=== PATIENT | male | born 1955 | race African-American/Black ===

== ENCOUNTER 2024-08-11 03:10 | Inpatient (IN) | payer MEDICARE, MEDICAID ==
[~2024-08-11] VITALS: Ht 172.7 cm; Wt 70.1 kg
[2024-08-11 03:50] LABS: BASOPHILS % 1.2 % (0.0-2.0); EOSINOPHILS % 3.6 % (0.0-5.0); HEMOGLOBIN. 13.9 g/dL (14.0-18.0); LYMPHOCYTES % 32.5 % (20.0-50.0); MEAN CORPUSCULAR HEMOGLOBIN 32.2 pg (28.0-32.0); MEAN CORPUSCULAR HGB CONC 33.9 g/dL (31.0-37.0); MEAN CORPUSCULAR VOLUME 95.1 fL (80.0-94.0); MEAN PLATELET VOLUME 8.9 fl (7.4-10.4); MONOCYTES % 9.9 % (2.0-8.0); NEUTROPHILS % 52.8 % (40.0-76.0); PLATELET 217 x1000/uL (130-400); RED BLOOD CELL COUNT 4.31 mill/uL (4.7-6.1); WHITE BLOOD COUNT 6.3 x1000/uL (4.5-11.0)
[2024-08-11 04:04] LABS: PARTIAL THROMBOPLASTIN TIME 25.5 sec (23.4-31.0)
[2024-08-11 04:37] LABS: CHLORIDE 109 mEq/L (98-107); POTASSIUM 3.9 mEq/L (3.5-5.1); SODIUM 142 mEq/L (136-145)
[2024-08-11 04:38] LABS: CARBON DIOXIDE 26 mEq/L (21-32)
[2024-08-11 04:39] LABS: CALCIUM 9.1 mg/dL (8.7-10.4)
[2024-08-11 04:43] LABS: CREATININE 1.9 mg/dL (0.6-1.3); GLUCOSE 91 mg/dL (70-105); UREA NITROGEN BLOOD 33 mg/dL (9-23)
[2024-08-11 04:52] LABS: ETHANOL BLOOD < 10 mg/dL (<10); TROPONIN I HIGH SENSITIVITY 79 ng/L (3.0-53)
[2024-08-11] MEDS: MORPHINE SULFATE 2 MG/ML INJ (NOT FOR IM USE) IV NR (05:39)
[2024-08-11] MEDS ORDERED: ONDANSETRON HCL 4MG/2ML INJ IV PRN (05:45)
[2024-08-11] MEDS ORDERED: HEPARIN 25,000 UNITS PREMIX 250 ML IV SCH (05:45)
[2024-08-11] MEDS ORDERED: ACETAMINOPHEN 325MG TABLET PO PRN (05:45)
[2024-08-11] MEDS ORDERED: IPRATROPIUM/ALBUTEROL 0.5-3(2.5)MG/3ML NEB HHN PRN (05:45)
[2024-08-11] MEDS ORDERED: HEPARIN 60 UNITS/KG BOLUS IV NR (05:45)
[2024-08-11] MEDS ORDERED: DEXTROSE 50% WATER 50ML SYRINGE IV PRN (05:45)
[2024-08-11] MEDS ORDERED: GUAIFENESIN 200MG/10ML SUGAR FREE UDC PO PRN (05:45)
[2024-08-11] MEDS ORDERED: HYDRALAZINE 20MG/ML VIAL IV PRN (05:45)
[2024-08-11 06:26] LABS: BASOPHILS % 0.5 % (0.0-2.0); HEMATOCRIT. 38.8 % (42.0-52.0); LYMPHOCYTES % 29.2 % (20.0-50.0); MEAN CORPUSCULAR HGB CONC 33.5 g/dL (31.0-37.0); MEAN CORPUSCULAR VOLUME 95.6 fL (80.0-94.0); MEAN PLATELET VOLUME 8.8 fl (7.4-10.4); MONOCYTES % 10.2 % (2.0-8.0); NEUTROPHILS % 57.1 % (40.0-76.0); PLATELET 210 x1000/uL (130-400); RED BLOOD CELL COUNT 4.06 mill/uL (4.7-6.1); RED CELL DISTRIBUTION WIDTH 13.1 % (11.6-14.6); WHITE BLOOD COUNT 6.9 x1000/uL (4.5-11.0)
[2024-08-11 06:36] LABS: CARBON DIOXIDE 21 mEq/L (21-32); CHLORIDE 120 mEq/L (98-107); POTASSIUM 3.1 mEq/L (3.5-5.1); SODIUM 146 mEq/L (136-145)
[2024-08-11 06:37] LABS: CALCIUM 6.2 mg/dL (8.7-10.4)
[2024-08-11 06:41] LABS: CREATININE 1.2 mg/dL (0.6-1.3); GLUCOSE 82 mg/dL (70-105)
[2024-08-11 06:42] LABS: LDL CHOLESTEROL 34 mg/dL (5-100); TRIGLYCERIDE 37 mg/dL (0-150); UREA NITROGEN BLOOD 25 mg/dL (9-23)
[2024-08-11 06:43] LABS: CHOLESTEROL 70 mg/dL (<200); CREATINE KINASE MB FRACTION 3.4 ng/mL (0.5-3.6)
[2024-08-11 06:44] LABS: HDL CHOLESTEROL 25 mg/dL (>55); PHOSPHORUS 1.8 mg/dL (2.5-4.9)
[2024-08-11 06:46] LABS: T4 FREE 0.75 ng/dL (0.89-1.76); THYROID STIMULATING HORMONE 0.46 uIU/mL (0.55-4.78)
[2024-08-11 08:03] LABS: *AMPHETAMINES SCREEN URINE NEGATIVE (NEGATIVE)
[2024-08-11 08:04] LABS: *BARBITURATES SCREEN URINE NEGATIVE (NEGATIVE); *BENZODIAZEPINES SCREEN URINE NEGATIVE (NEGATIVE); *COCAINE SCREEN URINE PRESUMPTIVE POSITIVE (NEGATIVE); CANNABINOID URINE SCREEN NEGATIVE (NEGATIVE); ECSTASY MDMA SCREEN URINE NEGATIVE (NEGATIVE); METHADONE URINE SCREEN NEGATIVE (NEGATIVE); OPIATES URINE SCREEN PRESUMPTIVE POSITIVE (NEGATIVE); PHENCYCLIDINE URINE SCREEN NEGATIVE (NEGATIVE)
[2024-08-11] MEDS: INSULIN LISPRO 100 UNITS/ML SUBCUT SCH (08:20)
[2024-08-11] MEDS: PANTOPRAZOLE 40MG DR TABLET PO SCH (08:36)
[2024-08-11 08:51] LABS: CLARITY URINE CLEAR (CLEAR); COLOR URINE YELLOW (YELLOW); GLUCOSE URINE NEGATIVE (NEGATIVE); KETONES URINE NEGATIVE (NEGATIVE); LEUKOCYTE ESTERASE URINE NEGATIVE (NEGATIVE); NITRITE URINE NEGATIVE (NEGATIVE); OCCULT BLOOD URINE NEGATIVE (NEGATIVE); PH URINE 6.5 (4.5-8.0); PROTEIN URINE TRACE (NEGATIVE); SPECIFIC GRAVITY URINE 1.017 (1.005-1.030)
[2024-08-11 09:05] LABS: BACTERIA URINE NONE SEEN; RBC URINE 0-2 /hpf (0-2); SQUAMOUS EPITHELIAL CELL URINE RARE /lpf (RARE/1+); WBC URINE 0-2 /hpf (0-2); YEAST URINE NONE SEEN
[2024-08-11] MEDS: BLOOD SUGAR DIAGNOSTIC STRIP TEST SCH (09:13)
[2024-08-11] MEDS: ASPIRIN 81MG TABLET PO SCH (09:17)
[2024-08-11] MEDS: ENOXAPARIN 80MG/0.8ML SYR SUBCUT SCH (09:18)
[2024-08-11] MEDS: POTASSIUM CHLORIDE 20MEQ TABLET SR PO NR (10:21)
[2024-08-11 10:59] LABS: TROPONIN I HIGH SENSITIVITY 275 ng/L (3.0-53)
[2024-08-11] MEDS ORDERED: HEPARIN BOLUS PRN aPTT <30 IV (12:00)
[2024-08-11] MEDS ORDERED: HEPARIN BOLUS PRN aPTT 30-44 IV (12:00)
[2024-08-11 15:45] LABS: TROPONIN I HIGH SENSITIVITY 331 ng/L (3.0-53)
[2024-08-11] MEDS: MAGNESIUM 2 G PREMIX 50 ML IV NR (16:29)
[2024-08-11] MEDS: POTASSIUM PHOSPHATE 30 MMOL in SODIUM CHLORIDE 0.9% 490 ML IV NR (16:58)
[2024-08-11 18:26] LABS: CREATINE KINASE MB FRACTION 4.1 ng/mL (0.5-3.6)
[2024-08-11] MEDS: ATORVASTATIN CALCIUM 40MG TABLET PO SCH (21:32)
[2024-08-12] VITALS: BP 116/67; PULSE 82; RESP 19; TEMP 36.78072; TEMP 36.8072; O2SAT 98
[2024-08-12 04:00] VITALS: BP 109/58; PULSE 78; RESP 19; TEMP 36.72516; O2SAT 98
[2024-08-12 08:00] VITALS: BP 122/77; PULSE 83; RESP 20; TEMP 35.94732; O2SAT 98
[2024-08-12] MEDS: LEVOTHYROXINE SODIUM 25MCG TABLET PO NR (10:02)
[2024-08-12 10:14] LABS: HEMATOCRIT 42.5 % (42.0-52.0); HEMOGLOBIN 13.9 g/dL (14.0-18.0); MEAN CORPUSCULAR HEMOGLOBIN 31.1 pg (28.0-32.0); MEAN CORPUSCULAR HGB CONC 32.8 g/dL (31.0-37.0); MEAN CORPUSCULAR VOLUME 95.1 fL (80.0-94.0); PLATELET 219 x1000/uL (130-400); RED BLOOD CELL COUNT 4.47 mill/uL (4.7-6.1); RED CELL DISTRIBUTION WIDTH 13.3 % (11.6-14.6); WHITE BLOOD COUNT 7.1 x1000/uL (4.5-11.0)
[2024-08-12 10:28] LABS: CARBON DIOXIDE 23 mEq/L (21-32); CHLORIDE 110 mEq/L (98-107); SODIUM 139 mEq/L (136-145)
[2024-08-12 10:29] LABS: CALCIUM 9.1 mg/dL (8.7-10.4)
[2024-08-12 10:34] LABS: CREATININE 1.5 mg/dL (0.6-1.3); GLUCOSE 121 mg/dL (70-105); UREA NITROGEN BLOOD 22 mg/dL (9-23)
[2024-08-12] MEDS: DILTIAZEM HCL 5MG/ML 5ML VIAL IV SCH (10:54)
[2024-08-12 10:58] LABS: POTASSIUM 5.4 mEq/L (3.5-5.1)
[2024-08-12] MEDS: NITROGLYCERIN SPRAY/4.9GM CAN TL NR (11:10)
[2024-08-12 12:00] VITALS: BP 142/79; PULSE 80; RESP 20; TEMP 36.00288; O2SAT 97
[2024-08-12 16:00] VITALS: BP 120/71; PULSE 80; RESP 20; TEMP 36.05844; O2SAT 97
[2024-08-12] MEDS: SODIUM CHLORIDE 0.9% 500 ML IV ONE (16:37)
[2024-08-12] MEDS: NITROGLYCERIN 0.4MG TABLET SL SL PRN (18:12)
[2024-08-12 20:00] VITALS: BP 145/80; PULSE 88; RESP 20; TEMP 36.28068; O2SAT 97
[2024-08-13] VITALS: BP 137/83; PULSE 86; RESP 21; TEMP 36.28068; O2SAT 97
[2024-08-13 04:00] VITALS: BP 125/85; PULSE 83; RESP 19; TEMP 36.05844; O2SAT 98
[2024-08-13 06:17] LABS: CHLORIDE 106 mEq/L (98-107); POTASSIUM 5.2 mEq/L (3.5-5.1); SODIUM 136 mEq/L (136-145)
[2024-08-13 06:18] LABS: CALCIUM 9.4 mg/dL (8.7-10.4); CARBON DIOXIDE 25 mEq/L (21-32)
[2024-08-13 06:23] LABS: CREATININE 1.4 mg/dL (0.6-1.3); GLUCOSE 96 mg/dL (70-105)
[2024-08-13 06:24] LABS: UREA NITROGEN BLOOD 19 mg/dL (9-23)
[2024-08-13 06:26] LABS: PHOSPHORUS 2.9 mg/dL (2.5-4.9)
[2024-08-13 06:39] LABS: HEMATOCRIT 42.1 % (42.0-52.0); HEMOGLOBIN 13.8 g/dL (14.0-18.0); MEAN CORPUSCULAR HEMOGLOBIN 31.2 pg (28.0-32.0); MEAN CORPUSCULAR HGB CONC 32.9 g/dL (31.0-37.0); MEAN CORPUSCULAR VOLUME 94.7 fL (80.0-94.0); PLATELET 222 x1000/uL (130-400); RED BLOOD CELL COUNT 4.44 mill/uL (4.7-6.1); WHITE BLOOD COUNT 7.1 x1000/uL (4.5-11.0)
[2024-08-13] MEDS: LEVOTHYROXINE SODIUM 25MCG TABLET PO SCH (06:45)
[2024-08-13 08:00] VITALS: BP 121/78; PULSE 85; RESP 18; TEMP 36.22512; O2SAT 97
[2024-08-13 09:20] LABS: HEMATOCRIT 44.8 % (42.0-52.0); MEAN CORPUSCULAR HEMOGLOBIN 31.7 pg (28.0-32.0); MEAN CORPUSCULAR HGB CONC 33.4 g/dL (31.0-37.0); MEAN CORPUSCULAR VOLUME 94.9 fL (80.0-94.0); PLATELET 246 x1000/uL (130-400); RED BLOOD CELL COUNT 4.72 mill/uL (4.7-6.1); RED CELL DISTRIBUTION WIDTH 13.2 % (11.6-14.6); WHITE BLOOD COUNT 7.3 x1000/uL (4.5-11.0)
[2024-08-13 12:00] VITALS: BP 119/71; PULSE 86; RESP 18; TEMP 36.3918; O2SAT 97
[2024-08-13 16:00] VITALS: BP 131/83; PULSE 89; RESP 19; TEMP 36.3918; O2SAT 97
[2024-08-13] MEDS: SODIUM CHLORIDE 0.9% 1,000 ML IV SCH (16:51)
[2024-08-13 19:08] LABS: TROPONIN I HIGH SENSITIVITY 106 ng/L (3.0-53)
[2024-08-13 20:00] VITALS: BP 112/88; PULSE 96; RESP 18; TEMP 36.33624; O2SAT 98
[2024-08-14 01:45] VITALS: BP 104/63; PULSE 77; RESP 18; TEMP 36.61404; O2SAT 95
[2024-08-14 04:48] VITALS: BP 130/76; PULSE 90; RESP 17; TEMP 36.72516; O2SAT 96
[2024-08-14 07:54] LABS: HEMOGLOBIN 14.2 g/dL (14.0-18.0); MEAN CORPUSCULAR HEMOGLOBIN 31.8 pg (28.0-32.0); MEAN CORPUSCULAR HGB CONC 33.8 g/dL (31.0-37.0); MEAN CORPUSCULAR VOLUME 94.3 fL (80.0-94.0); PLATELET 228 x1000/uL (130-400); RED BLOOD CELL COUNT 4.45 mill/uL (4.7-6.1); RED CELL DISTRIBUTION WIDTH 13.1 % (11.6-14.6); WHITE BLOOD COUNT 6.5 x1000/uL (4.5-11.0)
[2024-08-14 08:00] VITALS: BP 130/84; PULSE 87; RESP 18; TEMP 36.28068; O2SAT 100
[2024-08-14 08:25] LABS: CHLORIDE 105 mEq/L (98-107); POTASSIUM 5.2 mEq/L (3.5-5.1); SODIUM 134 mEq/L (136-145)
[2024-08-14 08:26] LABS: CALCIUM 8.6 mg/dL (8.7-10.4); CARBON DIOXIDE 25 mEq/L (21-32)
[2024-08-14] MEDS: NITROGLYCERIN 0.4MG TABLET SL SL PRN (08:26)
[2024-08-14 08:31] LABS: CREATININE 1.4 mg/dL (0.6-1.3); GLUCOSE 93 mg/dL (70-105); UREA NITROGEN BLOOD 21 mg/dL (9-23)
[2024-08-14 08:33] LABS: PHOSPHORUS 2.8 mg/dL (2.5-4.9)
[2024-08-14] MEDS: LACTATED RINGERS 1,000 ML IV ONE (09:31)
[2024-08-14 10:12] LABS: HEMATOCRIT 43.8 % (42.0-52.0); HEMOGLOBIN 14.3 g/dL (14.0-18.0); MEAN CORPUSCULAR HEMOGLOBIN 30.8 pg (28.0-32.0); MEAN CORPUSCULAR HGB CONC 32.6 g/dL (31.0-37.0); MEAN CORPUSCULAR VOLUME 94.4 fL (80.0-94.0); PLATELET 223 x1000/uL (130-400); RED BLOOD CELL COUNT 4.64 mill/uL (4.7-6.1); RED CELL DISTRIBUTION WIDTH 13.2 % (11.6-14.6); WHITE BLOOD COUNT 6.8 x1000/uL (4.5-11.0)
[2024-08-14] MEDS ORDERED: LIDOCAINE HCL 1% 10 MG/ML 10ML VIAL ONE (10:24)
[2024-08-14] MEDS ORDERED: FENTANYL CITRATE/PF 50MCG/ML 2ML VIAL ONE (10:25)
[2024-08-14] MEDS ORDERED: DIPHENHYDRAMINE 50MG/ML VIAL ONE (10:25)
[2024-08-14] MEDS ORDERED: MIDAZOLAM HCL 2 MG/2 ML VIAL ONE (10:25)
[2024-08-14] MEDS ORDERED: VERAPAMIL HCL 2.5 MG/1 ML 2ML VIAL IV ONE (10:25)
[2024-08-14] MEDS ORDERED: HEPARIN 1000 UNITS/ML 10ML ONE (10:25)
[2024-08-14] MEDS ORDERED: IODIXANOL 320MG/ML 100 ML BOTTLE IV ONE (10:25)
[2024-08-14] MEDS ORDERED: ACETAMINOPHEN 325MG TABLET PO PRN (12:00)
[2024-08-14] MEDS ORDERED: ATROPINE SULFATE 1MG/10ML SYR IV PRN (12:00)
[2024-08-14] MEDS: FUROSEMIDE 40MG/4ML VIAL IVP NR ×2 (15:40→21:20)
[2024-08-14 17:17] LABS: CLARITY URINE CLEAR (CLEAR); COLOR URINE YELLOW (YELLOW); GLUCOSE URINE NEGATIVE (NEGATIVE); KETONES URINE NEGATIVE (NEGATIVE); LEUKOCYTE ESTERASE URINE NEGATIVE (NEGATIVE); NITRITE URINE NEGATIVE (NEGATIVE); OCCULT BLOOD URINE NEGATIVE (NEGATIVE); PROTEIN URINE NEGATIVE (NEGATIVE); SPECIFIC GRAVITY URINE 1.011 (1.005-1.030); UROBILINOGEN URINE 0.2 E.U./dL (0.2-1.0)
[2024-08-14 17:51] VITALS: BP 115/83; PULSE 90; RESP 18; TEMP 36.6696; O2SAT 98
[2024-08-14] MEDS: LOSARTAN 25 MG TABLET PO SCH (18:00)
[2024-08-14 20:00] VITALS: BP 116/45; PULSE 67; RESP 19; TEMP 36.9474; O2SAT 98
[2024-08-14] MEDS: CHLORHEXIDINE GLUCONATE 4% EXTERNAL USE TOP SCH (21:00)
[2024-08-14] MEDS ORDERED: BISACODYL 10MG SUPP PR PRN (21:00)
[2024-08-14] MEDS ORDERED: DIPHENHYDRAMINE 25MG CAPSULE PO PRN (21:00)
[2024-08-14] MEDS: ALLOPURINOL 300 MG TABLET PO SCH (21:07)
[2024-08-14] MEDS: DOCUSATE SODIUM 100MG CAPSULE PO SCH (21:11)
[2024-08-14] MEDS: ASCORBIC ACID 500 MG TABLET PO SCH (21:11)
[2024-08-15] VITALS (63 sets, daily range): BP systolic 82–152; BP diastolic 39–122; PULSE 75–139; RESP 0–36; TEMP 35.16948–37.39188; O2SAT 92–100
[2024-08-15] MEDS ORDERED: INSULIN REGULAR 100 U/100 ML PREMIX IV NR (05:00)
[2024-08-15] MEDS: CEFAZOLIN 2GM/100ML 100 ML IV ONE (05:00)
[2024-08-15] MEDS ORDERED: AMINOCAPROIC ACID 5,000 MG in SODIUM CHLORIDE 0.9% 250 ML IV NR (05:00)
[2024-08-15] MEDS: BLOOD SUGAR DIAGNOSTIC STRIP TEST NR (05:00)
[2024-08-15] MEDS ORDERED: NICARDIPINE 40MG/200ML PREMIX 200 ML IV NR (05:00)
[2024-08-15] MEDS ORDERED: DOBUTAMINE 250 MG/250 ML PREMIX IV NR (05:00)
[2024-08-15] MEDS ORDERED: EPINEPHRINE 5 MG in DEXT 5% WATER 250 ML IV NR (05:00)
[2024-08-15] MEDS ORDERED: CEFAZOLIN 2GM/100ML 100 ML IV NR (05:00)
[2024-08-15] MEDS ORDERED: PAPAVERINE HCL 180MG in SODIUM CHLORIDE 0.9% 24ML IV NR (05:00)
[2024-08-15] MEDS ORDERED: THROMBIN (BOVINE) 5000 UNITS/VIAL TOP ONE (05:30)
[2024-08-15] MEDS ORDERED: DOPAMINE 400MG/250ML PREMIX 250 ML IV ONE (05:30)
[2024-08-15] MEDS ORDERED: VANCOMYCIN 1000MG/250ML IV NR (05:30)
[2024-08-15] MEDS ORDERED: POLYMYXIN B SULFATE 500000 UNITS/VIAL ONE (05:30)
[2024-08-15] MEDS ORDERED: HEPARIN 1000 UNITS/ML 10ML ONE ×3 (05:38→14:03)
[2024-08-15 06:45] LABS: POTASSIUM 4.6 mEq/L (3.5-5.1)
[2024-08-15 06:46] LABS: BASOPHILS % 0.7 % (0.0-2.0); EOSINOPHILS % 2.2 % (0.0-5.0); HEMATOCRIT. 43.7 % (42.0-52.0); HEMOGLOBIN. 14.4 g/dL (14.0-18.0); LYMPHOCYTES % 28.3 % (20.0-50.0); MEAN CORPUSCULAR HEMOGLOBIN 31.1 pg (28.0-32.0); MEAN CORPUSCULAR HGB CONC 32.9 g/dL (31.0-37.0); MEAN CORPUSCULAR VOLUME 94.4 fL (80.0-94.0); MEAN PLATELET VOLUME 8.9 fl (7.4-10.4); MONOCYTES % 11.5 % (2.0-8.0); NEUTROPHILS % 57.3 % (40.0-76.0); PLATELET 244 x1000/uL (130-400); RED BLOOD CELL COUNT 4.63 mill/uL (4.7-6.1); WHITE BLOOD COUNT 8.5 x1000/uL (4.5-11.0)
[2024-08-15 06:53] LABS: PHOSPHORUS 4.4 mg/dL (2.5-4.9)
[2024-08-15] MEDS ORDERED: SEVOFLURANE 250 ML LIQUID INH ONE (07:01)
[2024-08-15] MEDS ORDERED: NITROGLYCERIN 50MG PREMIX 250 ML IV ONE (07:08)
[2024-08-15] MEDS ORDERED: FENTANYL CITRATE/PF 50MCG/ML 2ML VIAL ONE (07:13)
[2024-08-15] MEDS ORDERED: LIDOCAINE HCL 2% 5ML SYRINGE IV ONE (07:14)
[2024-08-15] MEDS ORDERED: LIDOCAINE HCL 1% 10 MG/ML 10ML VIAL ONE (07:14)
[2024-08-15] MEDS ORDERED: PROPOFOL 200MG/20ML VIAL IV ONE (07:15)
[2024-08-15] MEDS ORDERED: ROCURONIUM BROMIDE 10MG/ML VIAL 5ML IV ONE ×3 (07:15→09:36)
[2024-08-15] MEDS ORDERED: EPINEPHRINE 0.1MG/ML (1:10,000) 10ML SYR ONE (07:16)
[2024-08-15] MEDS ORDERED: PHENYLEPHRINE HCL 10MG/ML 1ML IV ONE (07:18)
[2024-08-15] MEDS ORDERED: CALCIUM CHLORIDE 1GM/10ML SYR IV ONE ×2 (07:21→09:49)
[2024-08-15] MEDS ORDERED: FUROSEMIDE 20MG/2ML VIAL ONE (08:09)
[2024-08-15] MEDS ORDERED: METOCLOPRAMIDE HCL 10MG/2ML VIAL ONE (08:34)
[2024-08-15] MEDS ORDERED: ACETAMINOPHEN 1000MG/100ML 100 ML IV NR (08:45)
[2024-08-15] MEDS ORDERED: CHLORHEXIDINE GLUCONATE 4% EXTERNAL USE TOP SCH (09:00)
[2024-08-15] MEDS ORDERED: DEXTROSE 50% WATER 50ML SYRINGE IV PRN ×2 (10:00)
[2024-08-15] MEDS ORDERED: KCL 10MEQ/50ML PREMIX 200 ML IV PRN (10:00)
[2024-08-15] MEDS ORDERED: MAGNESIUM SULFATE 3 GM in DEXT 5% WATER 100 ML IV PRN ×2 (10:00→10:45)
[2024-08-15] MEDS ORDERED: MAGNESIUM 2 G PREMIX 50 ML IV PRN (10:00)
[2024-08-15] MEDS ORDERED: MAGNESIUM 1 G PREMIX 100 ML IV PRN (10:00)
[2024-08-15] MEDS ORDERED: PROTAMINE SULFATE 10MG/ML VIAL 25ML IV ONE (10:01)
[2024-08-15] MEDS ORDERED: DEXMEDETOMIDINE 400 MCG/100 ML 100 ML IV ONE (10:12)
[2024-08-15] MEDS ORDERED: SUGAMMADEX SODIUM 200MG/2ML VIAL IV ONE (10:13)
[2024-08-15] MEDS ORDERED: ONDANSETRON HCL 4MG/2ML INJ ONE (10:24)
[2024-08-15] MEDS ORDERED: SODIUM BICARBONATE 8.4% 50MEQ/50ML SYR IV ONE ×3 (10:34)
[2024-08-15] MEDS ORDERED: KCL 20MEQ/100ML PREMIX 100 ML IV ONE ×2 (10:37→10:38)
[2024-08-15] MEDS ORDERED: CALCIUM CHLORIDE 5,000 MG in DEXT 5% WATER 500 ML IV PRN ×2 (10:45→12:00)
[2024-08-15] MEDS ORDERED: CALCIUM CHLORIDE 3,000 MG in DEXT 5% WATER 250 ML IV PRN (10:45)
[2024-08-15] MEDS ORDERED: ALBUMIN HUMAN 25GM/100ML (25%) IV PRN (10:45)
[2024-08-15] MEDS ORDERED: ACETAMINOPHEN 325MG TABLET PO PRN (10:45)
[2024-08-15] MEDS ORDERED: ALBUMIN HUMAN 12.5G/250ML (5%) IV PRN (10:45)
[2024-08-15] MEDS ORDERED: ONDANSETRON HCL 4MG/2ML INJ IV PRN (10:45)
[2024-08-15] MEDS ORDERED: SODIUM CHLORIDE 0.9% 500 ML IV PRN (10:45)
[2024-08-15] MEDS ORDERED: ALBUMIN HUMAN 12.5G/250ML (5%) IV ONE (10:48)
[2024-08-15 11:39] LABS: BG BASE EXCESS -8.9 mmol/L (-2.0-3.0); BG CARBOXYHEMOGLOBIN 0.5 % (0.5-1.5); BG DEOXYHEMOGLOBIN 9.1 % (0.0-5.0); BG FRACTION INSPIRED OXYGEN 60; BG METHEMOGLOBIN 0.3 % (0.5-1.5); BG OXYGEN SATURATION 90.8 % (94.0-98.0); BG OXYHEMOGLOBIN 90.1 % (94.0-98.0); BG PCO2 42.5 mmHg (35.0-48.0); BG PH 7.245 (7.350-7.450); BG PO2 71.5 mmHg (83.0-108.0); BG SAMPLE SITE ALINE; BG TOTAL HEMOGLOBIN 12.6 g/dL (13.5-17.5); BG VENT MODE MASK - SIMPLE
[2024-08-15] MEDS: DEXT 5%/0.45% NACL 1000ML 1,000 ML IV SCH (11:49)
[2024-08-15] MEDS: SODIUM BICARBONATE 8.4% 50MEQ/50ML SYR IV NR ×3 (11:49→14:05)
[2024-08-15] MEDS: AMIODARONE 150MG/100ML 100 ML IV NR (11:50)
[2024-08-15 11:55] LABS: MEAN CORPUSCULAR HEMOGLOBIN 30.6 pg (28.0-32.0); MEAN CORPUSCULAR HGB CONC 32.1 g/dL (31.0-37.0); MEAN CORPUSCULAR VOLUME 95.5 fL (80.0-94.0); PLATELET 238 x1000/uL (130-400); RED BLOOD CELL COUNT 3.82 mill/uL (4.7-6.1); RED CELL DISTRIBUTION WIDTH 13.1 % (11.6-14.6)
[2024-08-15 11:59] LABS: CHLORIDE 105 mEq/L (98-107); POTASSIUM 3.6 mEq/L (3.5-5.1); SODIUM 138 mEq/L (136-145)
[2024-08-15 12:00] LABS: CARBON DIOXIDE 20 mEq/L (21-32); HEMATOCRIT 36.5 % (42.0-52.0); HEMOGLOBIN 11.7 g/dL (14.0-18.0); WHITE BLOOD COUNT 23.8 x1000/uL (4.5-11.0)
[2024-08-15] MEDS: BLOOD SUGAR DIAGNOSTIC STRIP TEST SCH (12:00)
[2024-08-15] MEDS ORDERED: DEXT 5%/0.45% NACL 1000ML 1,000 ML IV SCH (12:00)
[2024-08-15 12:05] LABS: CREATININE 2.2 mg/dL (0.6-1.3); UREA NITROGEN BLOOD 37 mg/dL (9-23)
[2024-08-15 12:07] LABS: PHOSPHORUS 3.8 mg/dL (2.5-4.9)
[2024-08-15 12:08] LABS: PROTHROMBIN TIME 11.5 sec (9.6-11.0)
[2024-08-15] MEDS: AMIODARONE HCL 900 MG in DEXT 5% WATER 482 ML IV PRN (12:08)
[2024-08-15] MEDS ORDERED: NALOXONE HCL 0.4MG/ML VIAL IV PRN (12:15)
[2024-08-15] MEDS: DOPAMINE 400MG/250ML PREMIX 250 ML IV PRN (12:19)
[2024-08-15] MEDS: NOREPINEPHRINE 8MG/250ML PMX 250 ML IV NR (12:21)
[2024-08-15] MEDS: INSULIN REGULAR 100U/100ML PMX 100 ML IV SCH (12:21)
[2024-08-15 12:23] LABS: BG BASE EXCESS -3.5 mmol/L (-2.0-3.0); BG CARBOXYHEMOGLOBIN 0.7 % (0.5-1.5); BG DEOXYHEMOGLOBIN 10.3 % (0.0-5.0); BG FRACTION INSPIRED OXYGEN 60; BG HCO3 ACT 23.1 mmol/L (21.0-28.0); BG METHEMOGLOBIN 0.3 % (0.5-1.5); BG OXYGEN SATURATION 89.6 % (94.0-98.0); BG OXYHEMOGLOBIN 88.7 % (94.0-98.0); BG PCO2 48.3 mmHg (35.0-48.0); BG PH 7.298 (7.350-7.450); BG PO2 65.3 mmHg (83.0-108.0); BG SAMPLE SITE ALINE; BG VENT MODE MASK - SIMPLE
[2024-08-15] MEDS: IPRATROPIUM/ALBUTEROL 0.5-3(2.5)MG/3ML NEB HHN SCH (12:28)
[2024-08-15] MEDS: KCL 10MEQ/50ML PREMIX 100 ML IV PRN (12:37)
[2024-08-15 12:41] LABS: GLUCOSE 322 mg/dL (70-105)
[2024-08-15] MEDS: ALBUMIN HUMAN 12.5G/250ML (5%) IV NR (12:50)
[2024-08-15] MEDS: BUMETANIDE 2.5MG/10ML VIAL IV NR (12:57)
[2024-08-15 13:35] LABS: BG BASE EXCESS -6.4 mmol/L (-2.0-3.0); BG CARBOXYHEMOGLOBIN 0.2 % (0.5-1.5); BG DEOXYHEMOGLOBIN 8.7 % (0.0-5.0); BG FRACTION INSPIRED OXYGEN 60; BG HCO3 ACT 19.6 mmol/L (21.0-28.0); BG METHEMOGLOBIN 0.3 % (0.5-1.5); BG OXYGEN SATURATION 91.3 % (94.0-98.0); BG OXYHEMOGLOBIN 90.8 % (94.0-98.0); BG PCO2 40.8 mmHg (35.0-48.0); BG PO2 69.4 mmHg (83.0-108.0); BG SAMPLE SITE ALINE; BG TOTAL HEMOGLOBIN 12.3 g/dL (13.5-17.5); BG VENT MODE MASK - SIMPLE
[2024-08-15] MEDS: CEFAZOLIN 1000MG PREMIX 50 ML IV SCH (13:49)
[2024-08-15] MEDS: OXYCODONE HCL/ACETAMINOPHEN 5/325MG TABLET PO PRN (13:49)
[2024-08-15] MEDS: EPINEPHRINE 5 MG in DEXT 5% WATER 245 ML IV PRN (14:05)
[2024-08-15] MEDS: MAGNESIUM 2 G PREMIX 50 ML IV NR (14:53)
[2024-08-15] MEDS: ACETAMINOPHEN WITH CODEINE 300/30MG TABLET PO PRN (15:09)
[2024-08-15] MEDS: FENTANYL CITRATE/PF 50MCG/ML 2ML VIAL IV NR (16:30)
[2024-08-15] MEDS ORDERED: NOREPINEPHRINE 8MG/250ML PMX 250 ML IV PRN (18:00)
[2024-08-15] MEDS: MORPHINE SULFATE 2 MG/ML INJ (NOT FOR IM USE) IV NR (18:30)
[2024-08-15 18:31] LABS: CHLORIDE 101 mEq/L (98-107); POTASSIUM 3.4 mEq/L (3.5-5.1); SODIUM 140 mEq/L (136-145)
[2024-08-15 18:32] LABS: CALCIUM 9.5 mg/dL (8.7-10.4); CARBON DIOXIDE 28 mEq/L (21-32); HEMATOCRIT. 34.2 % (42.0-52.0); HEMOGLOBIN. 11.5 g/dL (14.0-18.0); MEAN CORPUSCULAR HEMOGLOBIN 31.4 pg (28.0-32.0); MEAN CORPUSCULAR HGB CONC 33.6 g/dL (31.0-37.0); MEAN CORPUSCULAR VOLUME 93.4 fL (80.0-94.0); MEAN PLATELET VOLUME 9.3 fl (7.4-10.4); PLATELET 219 x1000/uL (130-400); RED BLOOD CELL COUNT 3.66 mill/uL (4.7-6.1); RED CELL DISTRIBUTION WIDTH 12.9 % (11.6-14.6)
[2024-08-15 18:35] LABS: DIFFERENTIAL COMMENT 1
[2024-08-15 18:37] LABS: CREATININE 2.3 mg/dL (0.6-1.3); GLUCOSE 259 mg/dL (70-105); UREA NITROGEN BLOOD 37 mg/dL (9-23)
[2024-08-15 18:39] LABS: PHOSPHORUS 1.2 mg/dL (2.5-4.9)
[2024-08-15] MEDS: MAGNESIUM 2 G PREMIX 50 ML IV PRN (18:43)
[2024-08-15] MEDS: KCL 10MEQ/50ML PREMIX 150 ML IV PRN (18:43)
[2024-08-15] MEDS: BACITRACIN 14GM TUBE TOP SCH (21:00)
[2024-08-15 21:12] LABS: PLATELET ESTIMATE NORMAL
[2024-08-15] MEDS: ACETAMINOPHEN 325MG TABLET PO PRN (23:15)
[2024-08-16] VITALS (101 sets, daily range): BP systolic 76–155; BP diastolic 45–130; PULSE 51–82; RESP 17–49; TEMP 36.22512–36.83628; O2SAT 82–100
[2024-08-16 01:26] LABS: HEMATOCRIT. 33.5 % (42.0-52.0); HEMOGLOBIN. 11.3 g/dL (14.0-18.0); MEAN CORPUSCULAR HEMOGLOBIN 31.7 pg (28.0-32.0); MEAN CORPUSCULAR HGB CONC 33.8 g/dL (31.0-37.0); MEAN CORPUSCULAR VOLUME 93.6 fL (80.0-94.0); PLATELET 210 x1000/uL (130-400); RED BLOOD CELL COUNT 3.58 mill/uL (4.7-6.1); RED CELL DISTRIBUTION WIDTH 12.9 % (11.6-14.6); WHITE BLOOD COUNT 19.2 x1000/uL (4.5-11.0)
[2024-08-16 01:31] LABS: CHLORIDE 100 mEq/L (98-107); POTASSIUM 4.7 mEq/L (3.5-5.1); SODIUM 136 mEq/L (136-145)
[2024-08-16 01:32] LABS: CALCIUM 8.9 mg/dL (8.7-10.4); CARBON DIOXIDE 30 mEq/L (21-32)
[2024-08-16 01:37] LABS: DIFFERENTIAL COMMENT 1; GLUCOSE 103 mg/dL (70-105); UREA NITROGEN BLOOD 34 mg/dL (9-23)
[2024-08-16 01:39] LABS: PHOSPHORUS 3.6 mg/dL (2.5-4.9)
[2024-08-16] MEDS: NITROGLYCERIN 0.4MG TABLET SL SL PRN (03:39)
[2024-08-16 05:14] LABS: PLATELET ESTIMATE NORMAL
[2024-08-16 05:19] LABS: HEMATOCRIT 32.4 % (42.0-52.0); HEMOGLOBIN 10.9 g/dL (14.0-18.0); MEAN CORPUSCULAR HEMOGLOBIN 31.2 pg (28.0-32.0); MEAN CORPUSCULAR HGB CONC 33.6 g/dL (31.0-37.0); MEAN CORPUSCULAR VOLUME 92.9 fL (80.0-94.0); PLATELET 202 x1000/uL (130-400); RED BLOOD CELL COUNT 3.49 mill/uL (4.7-6.1); RED CELL DISTRIBUTION WIDTH 12.9 % (11.6-14.6); WHITE BLOOD COUNT 20.6 x1000/uL (4.5-11.0)
[2024-08-16 05:20] LABS: BG BASE EXCESS 1.5 mmol/L (-2.0-3.0); BG CARBOXYHEMOGLOBIN 0.4 % (0.5-1.5); BG DEOXYHEMOGLOBIN 7.7 % (0.0-5.0); BG FRACTION INSPIRED OXYGEN 40; BG HCO3 ACT 26.8 mmol/L (21.0-28.0); BG METHEMOGLOBIN 0.3 % (0.5-1.5); BG OXYGEN SATURATION 92.2 % (94.0-98.0); BG OXYHEMOGLOBIN 91.6 % (94.0-98.0); BG PCO2 44.9 mmHg (35.0-48.0); BG PH 7.393 (7.350-7.450); BG PO2 65.3 mmHg (83.0-108.0); BG SAMPLE SITE ALINE; BG VENT MODE NASAL CANNULA
[2024-08-16 05:24] LABS: POTASSIUM 5.2 mEq/L (3.5-5.1)
[2024-08-16 05:27] LABS: CALCIUM 8.6 mg/dL (8.7-10.4)
[2024-08-16 05:31] LABS: CREATININE 1.9 mg/dL (0.6-1.3)
[2024-08-16 05:34] LABS: PHOSPHORUS 4.3 mg/dL (2.5-4.9)
[2024-08-16] MEDS ORDERED: CALCIUM GLUCONATE 1,000 MG in DEXT 5% WATER 90 ML IV ONE (07:45)
[2024-08-16] MEDS: FUROSEMIDE 40MG/4ML VIAL IVP SCH (08:08)
[2024-08-16] MEDS: FAMOTIDINE 20MG/2ML VIAL IV SCH (09:27)
[2024-08-16] MEDS: TAMSULOSIN HCL 0.4MG SR CAPSULE PO SCH (09:28)
[2024-08-16] MEDS: MIDODRINE HCL 5MG TABLET PO SCH (09:28)
[2024-08-16] MEDS: CALCIUM CHLORIDE 3,000 MG in DEXT 5% WATER 250 ML IV PRN (10:06)
[2024-08-16 11:35] LABS: CARBON DIOXIDE 25 mEq/L (21-32); CHLORIDE 101 mEq/L (98-107); POTASSIUM 5.7 mEq/L (3.5-5.1); SODIUM 134 mEq/L (136-145)
[2024-08-16 11:36] LABS: CALCIUM 8.6 mg/dL (8.7-10.4)
[2024-08-16 11:40] LABS: CREATININE 2.1 mg/dL (0.6-1.3); GLUCOSE 88 mg/dL (70-105)
[2024-08-16 11:41] LABS: UREA NITROGEN BLOOD 26 mg/dL (9-23)
[2024-08-16 11:43] LABS: PHOSPHORUS 4.8 mg/dL (2.5-4.9)
[2024-08-16 13:14] LABS: HEMATOCRIT. 36.8 % (42.0-52.0); HEMOGLOBIN. 11.7 g/dL (14.0-18.0); MEAN CORPUSCULAR HEMOGLOBIN 31.3 pg (28.0-32.0); MEAN CORPUSCULAR HGB CONC 31.7 g/dL (31.0-37.0); MEAN CORPUSCULAR VOLUME 98.8 fL (80.0-94.0); MEAN PLATELET VOLUME 9.5 fl (7.4-10.4); PLATELET 174 x1000/uL (130-400); RED BLOOD CELL COUNT 3.73 mill/uL (4.7-6.1); RED CELL DISTRIBUTION WIDTH 13.4 % (11.6-14.6)
[2024-08-16] MEDS ORDERED: SODIUM POLYSTYRENE SULFONATE 15 G/60 ML BOT PO ONE (13:45)
[2024-08-16 13:48] LABS: DIFFERENTIAL COMMENT 1
[2024-08-16] MEDS: SODIUM ZIRCONIUM CYCLOSILICATE 10GM/PACKET PO NR (14:00)
[2024-08-16] MEDS: DEXTROSE 50% WATER 50ML SYRINGE IV NR (14:00)
[2024-08-16] MEDS: INSULIN REGULAR (HUMULIN R) 1000UNITS/10ML VIAL IV NR (14:01)
[2024-08-16 16:10] LABS: PLATELET ESTIMATE NORMAL
[2024-08-16] MEDS: BLOOD SUGAR DIAGNOSTIC STRIP TEST SCH (20:00)
[2024-08-16] MEDS: MAGNESIUM/ALUMINUM HYDROXIDE/SIMETHICONE 30ML UDC PO PRN (20:51)
[2024-08-16 23:16] LABS: CHLORIDE 96 mEq/L (98-107); POTASSIUM 5.3 mEq/L (3.5-5.1); SODIUM 130 mEq/L (136-145)
[2024-08-16 23:17] LABS: CARBON DIOXIDE 29 mEq/L (21-32)
[2024-08-16 23:18] LABS: CALCIUM 9.9 mg/dL (8.7-10.4)
[2024-08-16 23:22] LABS: CREATININE 2.1 mg/dL (0.6-1.3); GLUCOSE 116 mg/dL (70-105)
[2024-08-16 23:23] LABS: UREA NITROGEN BLOOD 33 mg/dL (9-23)
[2024-08-16 23:25] LABS: PHOSPHORUS 6.2 mg/dL (2.5-4.9)
[2024-08-17] VITALS (39 sets, daily range): BP systolic 82–142; BP diastolic 29–95; PULSE 68–108; RESP 16–33; TEMP 36.33624–37.05852; O2SAT 0–100
[2024-08-17] MEDS: MAGNESIUM 1 G PREMIX 100 ML IV PRN (03:16)
[2024-08-17] MEDS: FUROSEMIDE 40MG/4ML VIAL IVP NR ×2 (03:23→10:01)
[2024-08-17] MEDS ORDERED: DEXTROSE 50% WATER 50ML SYRINGE IV PRN (07:45)
[2024-08-17] MEDS: BLOOD SUGAR DIAGNOSTIC STRIP TEST SCH (07:50)
[2024-08-17 08:17] LABS: HEMATOCRIT. 29.8 % (42.0-52.0); HEMOGLOBIN. 9.9 g/dL (14.0-18.0); MEAN CORPUSCULAR HEMOGLOBIN 31.4 pg (28.0-32.0); MEAN CORPUSCULAR HGB CONC 33.4 g/dL (31.0-37.0); MEAN CORPUSCULAR VOLUME 94.1 fL (80.0-94.0); MEAN PLATELET VOLUME 9.1 fl (7.4-10.4); PLATELET 150 x1000/uL (130-400); RED BLOOD CELL COUNT 3.16 mill/uL (4.7-6.1); WHITE BLOOD COUNT 15.6 x1000/uL (4.5-11.0)
[2024-08-17 08:21] LABS: CHLORIDE 95 mEq/L (98-107); POTASSIUM 5.1 mEq/L (3.5-5.1); SODIUM 130 mEq/L (136-145)
[2024-08-17 08:22] LABS: CALCIUM 9.3 mg/dL (8.7-10.4); CARBON DIOXIDE 28 mEq/L (21-32)
[2024-08-17 08:27] LABS: CREATININE 1.9 mg/dL (0.6-1.3); GLUCOSE 149 mg/dL (70-105); UREA NITROGEN BLOOD 34 mg/dL (9-23)
[2024-08-17 08:28] LABS: DIFFERENTIAL COMMENT 1
[2024-08-17 08:29] LABS: PHOSPHORUS 5.2 mg/dL (2.5-4.9)
[2024-08-17] MEDS ORDERED: POTASSIUM CHLORIDE 10MEQ IN WATER 50ML PREMIX IV ONE (09:00)
[2024-08-17] MEDS: INSULIN LISPRO 100 UNITS/ML SUBCUT SCH (09:09)
[2024-08-17] MEDS: CLOPIDOGREL 75MG TABLET PO NR (10:00)
[2024-08-17] MEDS: CLOPIDOGREL 75MG TABLET PO SCH (10:01)
[2024-08-17] MEDS: MAGNESIUM 2 G PREMIX 50 ML IV NR (10:01)
[2024-08-17] MEDS ORDERED: HALOPERIDOL 0.5MG TABLET PO PRN (10:30)
[2024-08-17 10:54] LABS: PLATELET ESTIMATE NORMAL
[2024-08-17] MEDS ORDERED: HALOPERIDOL LACTATE 5MG/ML VIAL IM PRN (18:15)
[2024-08-17] MEDS: SODIUM CHLORIDE 0.9% 1,000 ML IV SCH (18:30)
[2024-08-17] MEDS: LORAZEPAM 2MG/ML INJ IV PRN (18:39)
[2024-08-18] VITALS (8 sets, daily range): BP systolic 97–118; BP diastolic 57–72; PULSE 94–108; RESP 14–24; TEMP 36.55848–36.83628; O2SAT 95–99
[2024-08-18 06:34] LABS: HEMATOCRIT. 32.5 % (42.0-52.0); HEMOGLOBIN. 10.4 g/dL (14.0-18.0); MEAN CORPUSCULAR HGB CONC 32.1 g/dL (31.0-37.0); MEAN CORPUSCULAR VOLUME 96.5 fL (80.0-94.0); PLATELET 157 x1000/uL (130-400); RED BLOOD CELL COUNT 3.37 mill/uL (4.7-6.1); RED CELL DISTRIBUTION WIDTH 13.2 % (11.6-14.6); WHITE BLOOD COUNT 13.4 x1000/uL (4.5-11.0)
[2024-08-18 06:46] LABS: CARBON DIOXIDE 28 mEq/L (21-32); CHLORIDE 99 mEq/L (98-107); POTASSIUM 4.6 mEq/L (3.5-5.1); SODIUM 133 mEq/L (136-145)
[2024-08-18 06:47] LABS: CALCIUM 8.5 mg/dL (8.7-10.4)
[2024-08-18 06:51] LABS: CREATININE 1.7 mg/dL (0.6-1.3)
[2024-08-18 06:52] LABS: GLUCOSE 97 mg/dL (70-105); UREA NITROGEN BLOOD 33 mg/dL (9-23)
[2024-08-18 06:54] LABS: PHOSPHORUS 4.5 mg/dL (2.5-4.9)
[2024-08-18 07:23] LABS: DIFFERENTIAL COMMENT 1
[2024-08-18] MEDS: IOHEXOL-350 100 ML BOTTLE ONE (07:42)
[2024-08-18] MEDS: FUROSEMIDE 40MG/4ML VIAL IVP NR (11:01)
[2024-08-18] MEDS: MAGNESIUM 2 G PREMIX 50 ML IV NR (11:02)
[2024-08-18 14:31] LABS: PLATELET ESTIMATE NORMAL
[2024-08-19] VITALS (11 sets, daily range): BP systolic 104–132; BP diastolic 70–89; PULSE 102–118; RESP 14–25; TEMP 36.44736–36.83628; O2SAT 92–100
[2024-08-19 06:57] LABS: CHLORIDE 102 mEq/L (98-107); SODIUM 137 mEq/L (136-145)
[2024-08-19 06:58] LABS: CALCIUM 8.4 mg/dL (8.7-10.4); CARBON DIOXIDE 30 mEq/L (21-32)
[2024-08-19 07:00] LABS: HEMATOCRIT 30.9 % (42.0-52.0); HEMOGLOBIN 10.4 g/dL (14.0-18.0); MEAN CORPUSCULAR HEMOGLOBIN 32.1 pg (28.0-32.0); MEAN CORPUSCULAR HGB CONC 33.8 g/dL (31.0-37.0); MEAN CORPUSCULAR VOLUME 95.1 fL (80.0-94.0); PLATELET 216 x1000/uL (130-400); RED BLOOD CELL COUNT 3.25 mill/uL (4.7-6.1); RED CELL DISTRIBUTION WIDTH 13.1 % (11.6-14.6); WHITE BLOOD COUNT 9.4 x1000/uL (4.5-11.0)
[2024-08-19 07:03] LABS: CREATININE 1.3 mg/dL (0.6-1.3); GLUCOSE 128 mg/dL (70-105); UREA NITROGEN BLOOD 30 mg/dL (9-23)
[2024-08-19] MEDS: FUROSEMIDE 40MG/4ML VIAL IVP NR (08:17)
[2024-08-19 14:07] LABS: BG BASE EXCESS 3.7 mmol/L (-2.0-3.0); BG CARBOXYHEMOGLOBIN 0.9 % (0.5-1.5); BG FRACTION INSPIRED OXYGEN 21; BG HCO3 ACT 27.3 mmol/L (21.0-28.0); BG METHEMOGLOBIN 0.3 % (0.5-1.5); BG OXYGEN SATURATION 89.9 % (94.0-98.0); BG OXYHEMOGLOBIN 88.8 % (94.0-98.0); BG PCO2 37.5 mmHg (35.0-48.0); BG PO2 56.2 mmHg (83.0-108.0); BG SAMPLE SITE LEFT BRACHIAL; BG VENT MODE ROOM AIR
[2024-08-20] VITALS (14 sets, daily range): BP systolic 97–125; BP diastolic 59–92; PULSE 114–125; RESP 18–25; TEMP 36.61404–36.6696; O2SAT 95–100
[2024-08-20] MEDS: DOCUSATE SODIUM 100MG CAPSULE PO PRN (06:17)
[2024-08-20] MEDS: TAMSULOSIN HCL 0.4MG SR CAPSULE PO SCH (08:13)
[2024-08-20] MEDS: FUROSEMIDE 40MG/4ML VIAL IVP SCH (08:13)
[2024-08-20] MEDS: MIDODRINE HCL 5MG TABLET PO SCH (09:00)
[2024-08-20] MEDS ORDERED: FURO10VI3 PO (15:57)
[2024-08-20] MEDS ORDERED: ASPI-1160 PO (15:57)
[2024-08-20] MEDS ORDERED: PEPJ2 PO (15:57)
[2024-08-20] MEDS ORDERED: CLOP-31 PO (15:57)
[2024-08-20] MEDS ORDERED: MIDO5TAB4 PO (15:57)
[2024-08-20] MEDS ORDERED: NITR0.4T49 SL (15:57)
[2024-08-20] MEDS ORDERED: LIP40 PO (15:57)
[2024-08-20] MEDS ORDERED: TAMS-11 PO (15:57)
== END 2024-08-20 17:49 | disposition home health service (06) | DRG 165 ==
LOC: ER 03:18 → 5WST 17:11 → 7EST 23:11 → 3WST 08-14 17:41 → CVICU 08-15 11:01 → 3WST 08-17 22:23
PROVIDERS: ADMIT Hospitalist; ATTEND Hospitalist
PROC: 4A023N7 Measurement of Cardiac Sampling and Pressure, Left Heart, Percutaneous Approach (ICD-10-PCS; 2024-08-14)
PROC: B2111ZZ Fluoroscopy of Multiple Coronary Arteries using Low Osmolar Contrast (ICD-10-PCS; 2024-08-14)
PROC: 02100Z9 Bypass Coronary Artery, One Artery from Left Internal Mammary, Open Approach (ICD-10-PCS; 2024-08-15)
PROC: 021109W Bypass Coronary Artery, Two Arteries from Aorta with Autologous Venous Tissue, Open Approach (ICD-10-PCS; 2024-08-15)
PROC: 5A1221Z Performance of Cardiac Output, Continuous (ICD-10-PCS; 2024-08-15)
PROC: 06BQ0ZZ Excision of Left Saphenous Vein, Open Approach (ICD-10-PCS; 2024-08-15)
PROC: 5A2204Z Restoration of Cardiac Rhythm, Single (ICD-10-PCS; principal; 2024-08-16)
DX: I21.4 Non-ST elevation (NSTEMI) myocardial infarction (principal); I50.23 Acute on chronic systolic (congestive) heart failure; N17.9 Acute kidney failure, unspecified; I42.9 Cardiomyopathy, unspecified; E11.22 Type 2 diabetes mellitus with diabetic chronic kidney disease; D64.9 Anemia, unspecified; E03.8 Other specified hypothyroidism; E11.40 Type 2 diabetes mellitus with diabetic neuropathy, unspecified; I25.10 Atherosclerotic heart disease of native coronary artery without angina pectoris; Z20.822 Contact with and (suspected) exposure to COVID-19; I13.0 Hypertensive heart and chronic kidney disease with heart failure and stage 1 through stage 4 chronic kidney disease, or unspecified chronic kidney disease; E83.42 Hypomagnesemia; E87.6 Hypokalemia; I44.7 Left bundle-branch block, unspecified; N18.9 Chronic kidney disease, unspecified; N39.0 Urinary tract infection, site not specified; I48.0 Paroxysmal atrial fibrillation; F14.10 Cocaine abuse, uncomplicated; E78.5 Hyperlipidemia, unspecified; F17.200 Nicotine dependence, unspecified, uncomplicated; Z79.4 Long term (current) use of insulin; Z79.82 Long term (current) use of aspirin; Z79.899 Other long term (current) drug therapy; Z82.49 Family history of ischemic heart disease and other diseases of the circulatory system; Z91.148 Patient's other noncompliance with medication regimen for other reason
CPT/HCPCS: 36415; 36600; 71045; 75571; 80048; 80061; 80305; 80320; 81003; 82375; 82550; 82553; 82805; 82962; 83036; 83735; 83880; 84100; 84132; 84439; 84443; 84484; 85025; 85027; 85347; 86850; 86900; 86920; 87426; 88305; 93005; 93306; 93458; 93880; 93970; 94640; 97110; 97116; 97162; 97164; 97166; 97530; 97535; 99285; C1725; C1729; C1751; C1758; C1769; C1887; C1893; J0282; J0690; J1200; J1250; J1265; J1644; J1650; J1815; J1940; J2060; J2250; J2270; J2405; J2440; J2704; J2720; J2765; J3010; J3370; J3475; J3480; J3490; J7040; J7050; J7060; L3908; P9041; Q9957; Q9967; G0480; J0131